=== PATIENT | male | born 1965 | race African-American/Black ===

== ENCOUNTER 2019-01-17 04:00 | Emergency (ER) | payer MEDICAID ==
[~2019-01-17] VITALS: Ht 175.3 cm; Wt 113.0 kg
[2019-01-17 07:13] VITALS: BP 143/85
== END 2019-01-17 11:00 | disposition home or self-care (01) ==
LOC: ER 10:18
DX: E11.9 Type 2 diabetes mellitus without complications (principal); I10 Essential (primary) hypertension; M10.9 Gout, unspecified; Z98.890 Other specified postprocedural states; Z88.0 Allergy status to penicillin; Z88.2 Allergy status to sulfonamides; Z91.010 Allergy to peanuts; Z76.0 Encounter for issue of repeat prescription
CPT/HCPCS: 82962; 99282